=== PATIENT | female | born 1995 | race Caucasian/White ===

== ENCOUNTER 2016-09-23 10:33 | Emergency (ER) | payer OTHER ==
[~2016-09-23] VITALS: Ht 165.1 cm; Wt 72.5 kg
[2016-09-23 10:47] VITALS: Ht 165.1 cm; Wt 72.5 kg
--- NOTE | 2016-09-23 12:38 | ERA ---
ER Documentation Chief Complaint Date/Time DATE: 09/23/16 TIME: 12:38 Chief Complaint SORE THROAT SINCE THURSDAY GOT WORSE TODAY HPI The patient is a 21-year-old female, presenting to the ER because of sore throat for the last 5 days. She denies fever, nasal congestion, neck pain, chest pain, dyspnea, abdominal pain, vomiting, dysuria, diarrhea. She does not smoke nor drink Past medical/surgical history: None ROS All systems reviewed and are negative except as per history of present illness. Medications Home Meds Active Scripts Ibuprofen* (Motrin*) 600 Mg Tab, 600 MG PO Q6H Y for PAIN AND OR ELEVATED TEMP, #20 TAB Prov:ROXANNA NOYOLA MD 09/23/16 Allergies Allergies: Coded Allergies: No Known Allergy (Unverified , 09/23/16) Physical Exam Vitals Vital Signs Date Time Temp Pulse Resp B/P Pulse Ox O2 Delivery O2 Flow Rate FiO2 09/23/16 12:56 66 16 120/80 99 Room Air 09/23/16 10:47 98.0 74 19 120/71 100 Physical Exam Const: No acute distress. Head: Atraumatic. Eyes: Normal Conjunctiva. ENT: Normal External Ears, Nose and Mouth. Bilateral tympanic membranes and oropharynx are within normal limits Neck: Full range of motion. No meningismus. Resp: Clear to auscultation bilaterally. Cardio: Regular rate and rhythm, no murmurs. Abd: Soft, non distended, normal bowel sounds, non tender. Skin: No petechiae or rashes. Back: No midline or flank tenderness. Ext: No cyanosis, or edema. Neur: Awake and alert. No focal deficit Psych: Normal Mood and Affect. Procedures/MDM MEDICAL MAKING DECISION: The patient is a 21-year-old female, presenting with acute viral syndrome. The differential diagnoses considered include but are not limited to otitis media, tonsillitis, pharyngitis, influenza, bronchitis Departure Diagnosis: Primary Impression: Sore throat Condition: Good Comments She was discharged with Motrin I discussed the findings with the patient. I advised the patient to follow-up with the primary physician in about 3-5 days, sooner if needed and return if any concern. ROXANNA NOYOLA MD Sep 23, 2016 12:38
[2016-09-23] MEDS ORDERED: IBUP-1542 PO (12:51)
[2016-09-23 12:56] VITALS: BP 120/80; PULSE 66; RESP 16
== END 2016-09-23 13:02 | disposition home or self-care (01) ==
LOC: FTE 10:33
DX: J02.9 Acute pharyngitis, unspecified (principal)
CPT/HCPCS: 99283